=== PATIENT | male | born 1935 | race Caucasian/White ===

== ENCOUNTER 2020-11-26 08:01 | Outpatient (CLI) | payer MEDICARE, SELFPAY ==
[2020-11-26] VITALS (8 sets, daily range): BP systolic 126–164; BP diastolic 71–85; PULSE 58–70; RESP 12–20; TEMP 36.1; O2SAT 95–98
--- NOTE | 2020-11-26 08:02 | DI.RAD.S_ITS ---
PROCEDURE: PAIN L INTERLAMINAR/CAUDAL INJ INDICATIONS: SPONDYLOSIS COMPARISON: [facility], MR, MR LUMBAR SPINE WITHOUT CONTRAST, 09/26/2020, 18:56. FINDINGS: Fluoroscopic spot filming was performed to verify placement of a spinal needle at the L3-L4 level, as labeled on the films. Appropriate location of the needle tip was confirmed by injection of iodinated contrast. IMPRESSION: Intraprocedural examination within normal limits. Dictated by: Renan Hammond M.D. on 11/26/2020 at 8:44 Approved by: Renan Hammond M.D. on 11/26/2020 at 8:44
--- NOTE | 2020-11-26 08:26 | PC.NURSE ---
negative covid result 11/23/2020 11:43, Dr Mckeon aware.
[2020-11-26] MEDS: MIDAZOLAM 5 MG/5 ML VIAL IV (09:15)
[2020-11-26] MEDS: BUPIVACAINE 0.25% (PF) VIAL 30 ML (09:23)
[2020-11-26] MEDS: IOPAMIDOL 15 ML VIAL 3 ML INJ (09:23)
[2020-11-26] MEDS: BETAMETHASONE 30 MG/5 ML MDV 12 MG INJ (09:24)
[2020-11-26] MEDS: DEXAMETHASONE 10 MG/ML VIAL 20 MG INJ (09:24)
--- NOTE | 2020-11-26 09:32 | P.PCN_ITS ---
Date/Time/Diagnoses Date of procedure: 11/26/20 Time of procedure: 09:32 Pre-procedure diagnosis: 1. HNP WITH RADICULAR FEATURES, 2. MULTILEVEL CENTRAL STENOSIS, Post-procedure diagnosis: same Procedure Notes Procedure: 1. FLUOROSCOPICALLY GUIDED CONTRAST CONTROLLED INTERLAMINAR EPIDURAL STEROID INJECTION - L3/4 Indications: Edgardo Marino is referred by Dr. Cabrera for treatment of Bilateral Foraminal Stenosis L>R LE symptoms. Physician: Cirilo Mckeon Total Fluoroscopy time (seconds): 10 Total sedation minutes: 10 Complications: none Procedure in detail & Post-procedure care: FINDINGS Multilevel Central Spinal Stenosis with Nerve Root Compression DESCRIPTION OF PROCEDURE Fluoroscopically guided, contrast-controlled L3/4 translaminar epidural steroid injection. Following review of allergy and review of potential side effects and complications, including, but not necessarily limited to, infection, allergic reaction, local tissue breakdown, temporary as well as permanent nerve injury, paralysis, stroke and possible , the patient indicated that the patient understood and agreed to proceed. An informed consent document was signed by the patient, witnessed by a nurse, and placed in the patient's chart. Additionally, other treatment options including modalities, medications, and physical therapy were reviewed with the patient. After review of previous anaesthesic history and IV conscious sedation the patient was deemed safe to proceed with today?s procedure with IV conscious sedation as ASA class II designation. Safety time-out was performed to confirm patient ID, procedure to be performed and site of procedure. IV sedation was accomplished with a combination of 2mg of Versed was administered by the RN after DO order, titrated to patient comfort during the course of the procedure while the patient remained responsive to all verbal commands. In the prone position, following sterile prep and drape of the lumbar region, the L3/4 translaminar space was identified fluoroscopically. The skin was anesthetized via a 25-gauge, 1.5-inch needle with 1% lidocaine solution. At this point, a 22-gauge short bevel spinal needle was atraumatically introduced and advanced under fluoroscopic guidance into the region of the L3/4 translaminar space. Depth was confirmed on lateral view. Radiological data, including multiple fluoroscopic views of the lumbar spine, reveal a spinal needle at the L3/4 translaminar space. Lateral views then show placement of the needle in the epidural space. Subsequent views show contrast material flowing superiorly and inferiorly in the epidural space. No vascular or intrathecal uptake is observed. At this point, using loss of resistance technique with saline and air, the epidural space was entered. This was confirmed following negative aspiration with injection of approximately 1.5cc of Isovue 200, showing excellent epidural flow without vascular or intrathecal uptake. At this point, 1cc of 1% lidocaine solution combined with 3cc or 20mg of dexamethasone and 12mg of betamethasone was injected without incident. The patient tolerated the procedure well without signs or symptoms of complications prior to transfer to the recovery area continued monitoring without incident. The patient was then transferred to the recovery area where they were observed for an appropriate period of time after the injection. The patient reported a VAS score of 6 prior to the procedure and a post- procedure VAS of 0. POST OP INSTRUCTIONS The patient was provided a Pain Log to continue to record their response to the target-specific procedure prior to follow-up visit with their referring physician. Additionally, specific post-injection care instructions and a contact number to our office were provided if concerns arise regarding possible complications associated with the procedure are suspected.
== END 2020-11-26 09:52 | disposition home or self-care (01) ==
LOC: RAD 08:02
PROVIDERS: PCP Internal Medicine; Referring Provider Physical Medicine & Rehabilitation; Visit Provider Physical Medicine & Rehabilitation
DX: M51.16 Intervertebral disc disorders with radiculopathy, lumbar region (principal); M48.061 Spinal stenosis, lumbar region without neurogenic claudication
CPT/HCPCS: 62323; 99152; J0702; J1100; J2250; J3010

== ENCOUNTER → 2021-08-04 16:49 | Outpatient (CLI) | payer MEDICARE, SELFPAY ==
[2021-08-04 20:38] LABS: COVID19 -Nasal RAPID Negative (Negative)
== END ==
PROVIDERS: PCP Internal Medicine; Visit Provider Physical Medicine & Rehabilitation
DX: Z20.822 Contact with and (suspected) exposure to COVID-19 (principal); M47.816 Spondylosis without myelopathy or radiculopathy, lumbar region; M51.26 Other intervertebral disc displacement, lumbar region; M43.16 Spondylolisthesis, lumbar region; Z90.5 Acquired absence of kidney; Z95.5 Presence of coronary angioplasty implant and graft
CPT/HCPCS: 87635; 99214

== ENCOUNTER 2021-08-07 09:05 | Outpatient (CLI) | payer MEDICARE, SELFPAY ==
[2021-08-07] VITALS (8 sets, daily range): BP systolic 125–172; BP diastolic 80–102; PULSE 70–78; RESP 12–18; TEMP 36.4; O2SAT 95–99
--- NOTE | 2021-08-07 09:08 | DI.RAD.S_ITS ---
PROCEDURE: PAIN L/S FACET INJ/BLK 1ST ROSS COMPARISON: [facility], XA, PAIN L INTERLAMINAR/CAUDAL INJ, 11/26/2020, 9:19. INDICATIONS: SPONDYLOSIS FINDINGS: Fluoroscopic spot filming was performed to verify placement of spinal needles on both sides at the L4, L5, and S1 levels, as labeled on the films. Appropriate location of the needle tips was confirmed by injection of iodinated contrast. IMPRESSION: Intraprocedural examination demonstrating appropriate positions of the needles. Dictated by: Renan Hammond M.D. on 08/07/2021 at 10:07 Approved by: Renan Hammond M.D. on 08/07/2021 at 10:08
[2021-08-07] MEDS: MIDAZOLAM 2 MG/2 ML VIAL (10:28)
[2021-08-07] MEDS: IOPAMIDOL 15 ML VIAL 3 ML INJ (10:36)
[2021-08-07] MEDS: LIDOCAINE 1% (PF) 5 ML INJ (10:37)
[2021-08-07] MEDS: BUPIVACAINE 0.5% (PF) VIAL 30 ML (10:38)
--- NOTE | 2021-08-07 10:51 | P.PCN_ITS ---
Date/Time/Diagnoses Date of procedure: 08/07/21 Time of procedure: 10:51 Pre-procedure diagnosis: 1. FACET ARTHROPATHY Post-procedure diagnosis: same Procedure Notes Procedure: 1. BILATERAL- L4, L5 and S1 DIAGNOSTIC MB BLOCKS with LA Anesthetic Indications: Michelle is referred by Dr. Cabrera for treatment of Bilateral Axial LBP. Physician: Cirilo Mckeon Total Fluoroscopy time (seconds): 14 Total sedation minutes: 17 Complications: none Procedure in detail & Post-procedure care: DESCRIPTION OF PROCEDURE Fluoroscopically guided, contrast-controlled bilateral L4, L5 and S1 medial branch blocks with 0.5cc of 0.5% Marcaine. Following review of allergy and review of potential side effects and complications, including, but not necessarily limited to, infection, allergic reaction, local tissue breakdown, nerve injury, paralysis, stroke and possible , the patient indicated that the patient understood and agreed to proceed. An informed consent document was signed by the patient, witnessed by a nurse, and placed in the patient's chart. After review of previous anaesthesic history and IV conscious sedation the patient was deemed safe to proceed with today's procedure with IV conscious trini tion as ASA class II designation. Safety time-out was performed to confirm patient ID, procedure to be performed and site of procedure. IV sedation was accomplished with a combination of 2mg of Versed was administered by the RN after DO order, titrated to patient comfort during the course of the procedure while the patient remained responsive to all verbal commands In the prone position, following sterile prep and drape of the lumbar region, the right L4, L5 and S1 anatomical location of the medial branch of the dorsal ramus was identified fluoroscopically. Subsequently an anesthetic skin wheal using 1% lidocaine solution was initiated at each of the anatomical spots. Subsequently then a 22-gauge 3.5-inch spinal needle was atraumatically introduced and advanced under fluoroscopic guidance at each of the corresponding sites at the right L4, L5 and S1 MB. After negative aspiration, 0.2cc of Isovue 200 was injected, confirming placement without vascular or intrathecal uptake. Subsequently then 0.5cc of 0.5% Marcaine solution was injected at each of the corresponding sites at the right L4, L5 and S1 medial branch locations. The identical procedure was replicated on the left. The patient tolerated the procedure well without signs or symptoms of complications prior to transfer to the recovery area continued monitoring without incident. Post-procedure, the patient was monitored initiating provocative activities to measure the amount of relief from block of the facetogenic pain. The patient reported a VAS of 7 prior to the procedure and a post-procedure VAS of 1. It has been a pleasure to assist in the diagnostic and therapeutic care of your patient. POST OP INSTRUCTIONS The patient was provided with a Pain Log to complete over the next several hours and subsequent days prior to the patient's follow up with the ordering physician. If the patient has locomotive operator helper relief to the solution applied, then they may be a candidate for medial branch rhizotomy. The patient is aware, was provided, once again, with a Pain Log and will follow up with the referring physician for review and clinical correlation
== END 2021-08-07 11:01 | disposition home or self-care (01) ==
LOC: RAD 09:07
PROVIDERS: PCP Internal Medicine; Referring Provider Physical Medicine & Rehabilitation; Visit Provider Physical Medicine & Rehabilitation
DX: M47.816 Spondylosis without myelopathy or radiculopathy, lumbar region (principal); M47.817 Spondylosis without myelopathy or radiculopathy, lumbosacral region
CPT/HCPCS: 64493; 64494; 99152; J2250

== ENCOUNTER 2021-12-18 14:51 | Outpatient (CLI) | payer MEDICARE, SELFPAY ==
[2021-12-18] VITALS (11 sets, daily range): BP systolic 96–136; BP diastolic 58–86; PULSE 65–172; RESP 12–20; TEMP 36.2; O2SAT 95–99
--- NOTE | 2021-12-18 14:54 | DI.RAD.S_ITS ---
PROCEDURE: PAIN L/S FACET INJ/BLK 1ST ROSS COMPARISON: [facility], XA, PAIN L/S FACET INJ/BLK 1ST ROSS, 08/07/2021, 10:34. INDICATIONS: SPONDYLOSIS FINDINGS: Intraoperative fluoroscopic image shows placement of spinal needles on right side of L4, L5 and S1 levels. IMPRESSION: Fluoro guidance was provided for bilateral L4, L5 and S1 medial branch blocks performed by the ordering physician. Dictated by: Kevyn Arredondo M.D. on 12/18/2021 at 16:05 Approved by: Kevyn Arredondo M.D. on 12/18/2021 at 16:06
[2021-12-18] MEDS: MIDAZOLAM 2 MG/2 ML VIAL IV (15:35)
[2021-12-18] MEDS: IOPAMIDOL 15 ML VIAL 3 ML INJ (15:41)
--- NOTE | 2021-12-18 15:41 | PC.NURSE ---
Report from Hui BRITT that during procedure patient became hypotensive. HR remained stable. Patient awake and alert upon receiving post injection. 250 mL NS bolus initiated per Dr. Mckeon's order. BP maintained, last 118/58 MAP 84 with HR 80's-90's. Dr. Mckeon spoke with patient and advised him to hold his metoprolol until he speaks with his twister tender paper regarding his BP as well as symptoms of dizziness reported the last few days. Patient verbalized understanding. Patient is cleared from post sedation monitoring. He does however report bilateral lower extremity numbness. Unsteady upon standing with 2 person SBA. Will hold and continue to monitor.
[2021-12-18] MEDS: BUPIVACAINE 0.5% (PF) VIAL 5 ML INJ (15:42)
[2021-12-18] MEDS: LIDOCAINE 1% 20 ML 5 ML INJ (15:44)
--- NOTE | 2021-12-18 15:58 | PM.PROC.IR.1 ---
Date/Time/Diagnoses Date of procedure: 12/18/21 Time of procedure: 15:58 Pre-procedure diagnosis: 1. FACET ARTHROPATHY Post-procedure diagnosis: same Procedure Notes Procedure: 1. BILATERAL- L4, L5 and S1 DIAGNOSTIC MB BLOCKS with SA Anesthetic Indications: Michelle is referred by Dr. Cabrera for treatment of Bilateral Axial LBP. Physician: Cirilo Mckeon Total Fluoroscopy time (seconds): 11 Total sedation minutes: 14 Complications: none Procedure in detail & Post-procedure care: DESCRIPTION OF PROCEDURE Fluoroscopically guided, contrast-controlled bilateral L4, L5 and S1 medial branch blocks with 0.5cc of 2% Lidocaine. Following review of allergy and review of potential side effects and complications, including, but not necessarily limited to, infection, allergic reaction, local tissue breakdown, nerve injury, paralysis, stroke and possible , the patient indicated that the patient understood and agreed to proceed. An informed consent document was signed by the patient, witnessed by a nurse, and placed in the patient's chart. After review of previous anaesthesic history and IV conscious sedation the patient was deemed safe to proceed with today's procedure with IV conscious sedation as ASA class II designation. Safety time-out was performed to confirm patient ID, procedure to be performed and site of procedure. IV sedation was accomplished with a combination of 2mg of Versed was administered by the RN after DO order, titrated to patient comfort during the course of the procedure while the patient remained responsive to all verbal commands In the prone position, following sterile prep and drape of the lumbar region, the right L4, L5 and S1 anatomical location of the medial branch of the dorsal ramus was identified fluoroscopically. Subsequently an anesthetic skin wheal using 1% lidocaine solution was initiated at each of the anatomical spots. Subsequently then a 22-gauge 3.5-inch spinal needle was atraumatically introduced and advanced under fluoroscopic guidance at each of the corresponding sites at the right L4, L5 and S1 MB. After negative aspiration, 0.2cc of Isovue 200 was injected, confirming placement without vascular or intrathecal uptake. Subsequently then 0.5cc of 2% Lidocaine solution was injected at each of the corresponding sites at the right L4, L5 and S1 medial branch locations. The identical procedure was replicated on the left. The patient tolerated the procedure well without signs or symptoms of complications prior to transfer to the recovery area continued monitoring without incident. Post-procedure, the patient was monitored initiating provocative activities to measure the amount of relief from block of the facetogenic pain. The patient reported a VAS of 7 prior to the procedure and a post-procedure VAS of 1. It has been a pleasure to assist in the diagnostic and therapeutic care of your patient. POST OP INSTRUCTIONS The patient was provided with a Pain Log to complete over the next several hours and subsequent days prior to the patient's follow up with the ordering physician. If the patient has mold technician relief to the solution applied, then they may be a candidate for medial branch rhizotomy. The patient is aware, was provided, once again, with a Pain Log and will follow up with the referring physician for review and clinical correlation
== END 2021-12-18 16:12 | disposition home or self-care (01) ==
LOC: RAD 14:54
PROVIDERS: PCP Internal Medicine; Referring Provider Physical Medicine & Rehabilitation; Visit Provider Physical Medicine & Rehabilitation
DX: M47.816 Spondylosis without myelopathy or radiculopathy, lumbar region (principal); M47.817 Spondylosis without myelopathy or radiculopathy, lumbosacral region
CPT/HCPCS: 64493; 64494; 99152; J2250

== ENCOUNTER → 2021-12-31 16:00 | Outpatient (CLI) | payer MEDICARE, SELFPAY ==
--- NOTE | 2021-12-31 16:05 | DI.MRI.S_ITS ---
PROCEDURE: MR LUMBAR SPINE WO CON INDICATIONS: Acute low back pain on top of chronic s/p 12/18 injection TECHNIQUE: Noncontrast sagittal T1 spin echo and T2 fast echo, sagittal STIR, and T2 fast spin echo through the lumbar spine. In cases with scoliosis, additional coronal T2 fast spin echo may be performed. COMPARISON: [facility], MR, MR LUMBAR SPINE WITHOUT CONTRAST, 09/26/2020, 18:56. FINDINGS: Image quality: Excellent. Alignment and Curvature: There is normal bony alignment. Bone Marrow: There is metastatic marrow replacement noted involving the L4 anterior vertebral body on the left as well as the L5 vertebral body posteriorly extending into the right pedicle and facet. Spinal Cord: Conus medullaris terminates at the L1 level. Visualized cord demonstrates normal signal and size. At the disc levels, there is diffuse disc space narrowing and hypertrophic facet joints particularly lower lumbar spine. Mild central stenosis at L3-4 and L4-5 with hypertrophic facet joints. Healed facet ankylosis/arthrodesis noted L5-S1 without instrumentation. IMPRESSION: 1. 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 2. Stable degenerative disc disease and arthropathy Approved by: Nir Zhu M.D. on 12/31/2021 at 17:01
== END ==
PROVIDERS: PCP Internal Medicine; Referring Provider Physical Medicine & Rehabilitation; Visit Provider Physical Medicine & Rehabilitation
DX: M51.16 Intervertebral disc disorders with radiculopathy, lumbar region (principal); M47.26 Other spondylosis with radiculopathy, lumbar region; M48.061 Spinal stenosis, lumbar region without neurogenic claudication; M43.16 Spondylolisthesis, lumbar region; Z94.81 Bone marrow transplant status; Z95.5 Presence of coronary angioplasty implant and graft
CPT/HCPCS: 72148; 99214

== ENCOUNTER → 2022-02-02 12:24 | Outpatient (CLI) | payer MEDICARE, SELFPAY ==
--- NOTE | 2022-02-02 12:34 | DI.CT.S_ITS ---
PROCEDURE: CT CHEST ABD PEL W CON INDICATIONS: Spinal METS, no primary TECHNIQUE: After the administration of oral and intravenous contrast, axial sections acquired from the supraclavicular neck to the pubic symphysis. Coronal and sagittal reformats were performed. For radiation dose reduction, the following was used: automated exposure control, adjustment of mA and/or kV according to patient size. COMPARISON: [facility], CT, CT CHEST WITHOUT CONTRAST, 01/08/2022, 10:49. [facility], CT, CT ABDOMEN PELVIS WITH CONTRAST, 01/05/2022, 14:06. [facility], MR, MR LUMBAR SPINE WO CON, 12/31/2021, 16:13. [facility], NM, NM BONE SCAN WHOLE BODY, 01/08/2022, 14:47. FINDINGS: Image quality: Excellent. CHEST: Lower Neck: No enlarged lymph nodes. Thyroid: Unremarkable. Axillae: There is a borderline enlarged left axillary lymph node which is new when compared with the study dated January 08, 2022 (series 2/image 21). No other axillary adenopathy. Chest Wall: Unremarkable. Lungs and Airways: No consolidation or suspicious nodules. Pleura: No pneumothorax or pleural effusions. Heart: Heart size is normal. No pericardial effusion. Thoracic Vessels: The aorta and pulmonary arteries demonstrate normal size. Mediastinum and Daniella: No enlarged lymph nodes. Esophagus: No wall thickening. No hiatal hernia. ABDOMEN: Liver: Unremarkable. Gallbladder: Unremarkable. Biliary ducts: Unremarkable. Pancreas: Unremarkable. Spleen: Unremarkable. Adrenal Glands: Unremarkable. Kidneys and Ureters: Unremarkable. Stomach and Bowel: Stomach, small bowel loops, and colon are unremarkable. There are scattered sigmoid diverticula. No evidence for diverticulitis. The appendix is thin walled and gas filled. Peritoneum: No abnormal intraperitoneal fluid. No free air. Ventral Wall: No hernia. Abdominal Nodes: There is an enlarged retroperitoneal lymph node which measures 9 mm in diameter (series 2/image 80). This is new when compared with the CT dated January 05, 2022. Shotty subcentimeter mesenteric lymph nodes are pre she aided at the cecum. Vessels: Aorta and inferior vena cava are normal in size. There are scattered atheromatous calcifications throughout the aorta and iliac arteries bilaterally. PELVIS: Pelvic Organs: Unremarkable. Bladder: Unremarkable. Pelvic Nodes: No enlarged lymph nodes. Miscellaneous: There is a large left fat containing inguinal hernia. Bones: Unremarkable. No discrete lesion is appreciated at L4 and L5 to correspond with the findings on the MRI of the lumbar spine dated December 31, 2021. IMPRESSION: 1. Solitary enlarged left axillary lymph node and solitary enlarged retroperitoneal lymph node as above. These may be reactive in nature. 2. No findings to suggest primary neoplasm of the thorax, abdomen, or pelvis. 3. No discrete bony lesions to correspond with the MRI findings at L4-5 on the comparison MRI dated December 31, 2021. Dictated by: Vashti Eckert M.D. on 02/02/2022 at 15:49 Approved by: Vashti Eckert M.D. on 02/02/2022 at 15:59
[2022-02-02 13:00] LABS: Estimated Glomerular Filt Rate > 60 mL/min (>60)
== END ==
PROVIDERS: Radiology Diagnostic Radiology; PCP Internal Medicine; Referring Provider Physical Medicine & Rehabilitation; Visit Provider Physical Medicine & Rehabilitation
DX: C80.1 Malignant (primary) neoplasm, unspecified; C79.51 Secondary malignant neoplasm of bone; R59.0 Localized enlarged lymph nodes; K57.30 Diverticulosis of large intestine without perforation or abscess without bleeding; K40.90 Unilateral inguinal hernia, without obstruction or gangrene, not specified as recurrent
CPT/HCPCS: 36415; 71260; 74177; 82565; Q9967